=== PATIENT | female | born 1985 | race Asian ===

== ENCOUNTER 2016-07-27 18:22 | Emergency (ER) | payer SELFPAY ==
[2016-07-27 19:21] VITALS: BP 132/84
--- NOTE | 2016-07-27 20:12 | UC ---
Laceration HPI - HPI Summary HPI Summary: CUTTING ONIONS AN HOUR AGO, SUSTAINED SMALL LACERATION TO LEFT THUMB. BLLEDING [employer]OLLED [employer] - History Of Current Complaint Chief Complaint: UCLaceration Stated Complaint: FINGER LAC Time Seen by Provider: 07/27/16 18:33 Hx Obtained From: Patient Laceration Location: Finger - LEFT THUMB Mechanism Of Injury: Sharp Trauma Onset/Duration: Sudden Onset Severity: Mild Pain Intensity: 0 Pain Scale Used: 0-10 Numeric Aggravating Factors: Nothing Related History: Dominant Hand Right - Allergies/Home Medications Allergies/Adverse Reactions: Allergies Allergy/AdvReac Type Severity Reaction Status Date / Time No Known Allergies Allergy Verified 07/27/16 19:21 Home Medications: Home Medications NK [No Home Medications Reported] 07/27/16 [History Confirmed 07/27/16] PMH/Surg Hx/FS Hx/Imm Hx Previously Healthy: Yes - Surgical History Surgical History: None - Family History Known Family History: Negative: Blood Disorder - Social History Occupation: Student Lives: With Family Alcohol Use: None Substance Use Type: None Smoking Status (MU): Light Every Day Tobacco Smoker Cessation Counseling: Patient Advised to Stop Review of Systems Constitutional: Negative Skin: Other - LACERATION 0.5 CM LEFT THUMB Eyes: Negative ENT: Negative Respiratory: Negative Cardiovascular: Negative Gastrointestinal: Negative Genitourinary: Negative Motor: Negative Neurovascular: Negative Musculoskeletal: Negative Neurological: Negative Psychological: Negative All Other Systems Reviewed And Are Negative: Yes Physical Exam Triage Information Reviewed: Yes Appearance: Well-Appearing, No Pain Distress, Well-Nourished Vital Signs: Initial Vital Signs Temp 98.1 F 07/27/16 19:18 Pulse 67 07/27/16 19:18 Resp 18 07/27/16 19:18 BP 132/84 07/27/16 19:18 Pulse Ox 99 07/27/16 19:18 Vital Signs Reviewed: Yes Eye Exam: Normal ENT Exam: Normal ENT: Positive: Normal ENT inspection Dental Exam: Normal Neck exam: Normal Neck: Positive: Supple, Nontender, No Lymphadenopathy Respiratory Exam: Normal Respiratory: Positive: Chest non-tender, Lungs clear, Normal breath sounds Cardiovascular Exam: Normal Cardiovascular: Positive: RRR, No Murmur Abdominal Exam: Normal Abdomen Description: Positive: Nontender, No Organomegaly Musculoskeletal Exam: Normal Neurological Exam: Normal Psychological Exam: Normal Psychological: Positive: Normal Response To Family Skin Exam: Normal Laceration Repair - Laceration Repair 1 Description: Linear Laceration Size After Repair: Length (cm) - 0.5, Width (mm) - 2, Depth (mm) - 2 Closure Material: Skin Adhesive, SteriStrips Laceration Course/Dx - Differential Dx - Laceration/Wound Differental Diagnoses: Laceration Provider Diagnoses: LACERATION LEFT THUMB WITH REPAIR Discharge - Discharge Plan Condition: Stable Disposition: HOME Patient Education Materials: Skin Adhesive Care (ED), Steristrips (ED), Facial Laceration (ED) Referrals: [facility] [Outside]
== END 2016-07-27 19:44 | disposition home or self-care (01) ==
LOC: UCEAST 18:22
DX: S61.012A Laceration without foreign body of left thumb without damage to nail, initial encounter (principal); W26.0XXA Contact with knife, initial encounter; F17.290 Nicotine dependence, other tobacco product, uncomplicated
CPT/HCPCS: 12001; 99201; G0463